=== PATIENT | male | born 1950 ===

== ENCOUNTER 2025-09-13 09:52 | Outpatient (AMB) | payer MEDICARE, MEDICAID, SELFPAY ==
--- NOTE | 2025-09-13 09:59 | A.OFFVIS_ITS ---
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 He is presenting for a follow-up visit for Parkinson's disease. His last visit was approximately 1.5 years ago. His condition is reportedly stable. Cognitively, the patient is alert but experiences some age-related forgetfulness, which is considered unremarkable. There are no reports of hallucinations, and a prior suspicion of such was found to be due to an alarm in the basement. There is confusion regarding his current medication regimen. His primary care physician reportedly reduced a medication from twice or three times daily to once daily, but this was later advised to be increased back to twice daily by the neurology office. He is known to be taking both carbidopa-levodopa 50/100 and 25 mg formulations, but the exact current dosages are unconfirmed. The patient is more active, walks up and down stairs without a walker, and leaves the house for errands. 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 - Denies hallucinations. Physical Exam Neuro Other: Mental Status: Alert and oriented to person, place, and time. Normal attention. Normal spontaneous speech, fluency, and comprehension. Cranial Nerves: CN II: Visual morillo full to confrontation, visual acuity intact. CN III, IV, : Pupils equal, round, reactive to light and accommodation. Extraocular movements are normal. CN V: Facial sensation is normal. CN VII: Facial movements symmetrical. CN VIII: Hearing intact to bedside conversation is normal. CN IX, X: Palate elevates symmetrically. CN XI: Shoulder shrug and head turn symmetrical. CN XII: Tongue midline without atrophy or fasciculations. Motor: Bulk and tone normal in all extremities. No significant muscle weakness in arms and legs. No drift. Reflexes: Deep tendon reflexes 2+ and symmetric. Plantar response down-going bilaterally. Coordination: [id number] and [id number] testing normal. No dysmetria. Gait and Station: No obvious gait abnormality. No ataxia or instability. Extrapyramidal: Full facial expressions and blinking. No rigidity. Movements are appropriate with no tremor or abnormality. Speech: Normal; no dysarthria or tremor. Assessment & Plan Assessment & Plan (1) Parkinson disease: Comment: MRI brain WO at [facility] in January 2024: minimal atrophy and minimal MVD. Code(s): G20.A1 - Parkinson's disease without dyskinesia, without mention of fluctuations Category: Medical Qualifiers: Dyskinesia presence: without dyskinesia Fluctuating manifestations: without fluctuating manifestations Qualified Code(s): G20.A1 - Parkinson's disease without dyskinesia, without mention of fluctuations Plan Impression: a; Parkinson disease b: MCI Rec: a: Carbidopa/levodopa 25/100 one tid b: Carbidopa/levodopa ER 50/200 one tid I discussed with the patient and his caregiver that he appears to be doing well from a Parkinson's standpoint. I explained that due to recent medication changes by his primary doctor and the resulting confusion, I cannot safely send refills without knowing exactly what he is currently taking. I instructed his caregiver to call the office today with the correct medication list. We agreed that he should be seen for follow-up every six months. Coding Level of Care Code Est Pt Level 3 (91401) Diagnoses Parkinson's disease without dyskinesia or fluctuating manifestations G20.A1 Dyskinesia presence: without dyskinesia Fluctuating manifestations: without fluctuating manifestations
--- OUTSIDE RECORDS SUMMARY | 2025-09-13 09:59 | XMS_ITS | Clinical Summary ---
Author Organization [facility] Address [address] [place] [address] Phone Care Team Providers Care Mortgage Loan Originator Name Role Phone Pamela Pete MD Primary Care Provider Allergies No known active allergies Medications Senexon-S 8.6-50 mg per tablet TAKE 1 TABLET BY MOUTH EVERY DAY 90 tablet 1 08/17/20 24 Active Additional Information Patient taking differently:1 tablet oralDaily PRN, constipation, Reported on 04/21/2025 loratadine (CLARITIN) 10 mg tablet Take 1 tablet (10 mg total) by mouth 1 (one) time each day if needed for allergies. Active carbidopa-levodopa (SINEMET) 25-100 mg per tablet TAKE 2 TABLETS BY MOUTH 3 TIMES A DAY 11/01/19 22 Active acetaminophen (TYLENOL) 500 mg tabletIndications: Primary hypertension,Mixed hyperlipidemia,Par kinson's disease, unspecified whether dyskinesia present, unspecified whether manifestations fluctuate (CMS/HCC V24, CMS/HCC V28),Hx of compression fracture of spine,History of mitral valve repair Take 2 tablets (1,000 mg total) by mouth every 8 (eight) hours. as directed for 30 days 90 tablet 2 12/23/19 25 Active Additional Information Patient taking differently:1,000 mg oralEvery 8 hours PRN, as directed for 30 days, Reported on 04/21/2025 carbidopa-levodopa CR (SINEMET CR) 50-200 mg per CR tablet Take 1 tablet by mouth 3 (three) times a day. Do not crush or chew. Active melatonin 10 mg capsule Take 1 capsule (10 mg total) by mouth at bedtime as needed. Active Entresto 49-51 mg per tabletIndications: Cardiomyopathy, unspecified (CMS/HCC V24, CMS/HCC V28) TAKE 1 TABLET BY MOUTH TWICE A DAY 180 tablet 3 01/03/20 25 Active simvastatin (ZOCOR) 20 mg tablet TAKE 1 TABLET BY MOUTH EVERYDAY AT BEDTIME 90 tablet 1 03/06/20 25 Active metoprolol succinate (TOPROL-XL) 100 mg 24 hr tablet TAKE 1 TABLET BY MOUTH EVERY DAY 90 tablet 3 06/02/20 25 Active spironolactone (ALDACTONE) 25 mg tablet TAKE 1 TABLET BY MOUTH 1 TIME EACH DAY. 90 tablet 1 06/02/20 25 Active apixaban (Eliquis) 5 mg tabletIndications: Other persistent atrial fibrillation (CMS/HCC V24, CMS/HCC V28) TAKE 1 TABLET BY MOUTH TWICE A DAY 90 tablet 3 07/24/20 25 Active Active Problems Problem Noted Date Diagnosed Date HTN (hypertension) 08/26/2024 Assessment & Plan (04/21/2025 3:12 PM EDT): Soft and asymptomatic. Continue with Entresto, metoprolol and spironolactone. Hyperlipidemia 08/26/2024 Assessment & Plan (04/21/2025 3:12 PM EDT): Lab Results Component Value Date CHOL 135 12/22/2024 CHOL 134 06/22/2024 Lab Results Component Value Date HDL 50 12/22/2024 HDL 58 06/22/2024 Lab Results Component Value Date LDLCALC 60 12/22/2024 Lab Results Component Value Date TRIG 124 12/22/2024 TRIG 78 06/22/2024 Lab Results Component Value Date CHOLHDL 2.7 12/22/2024 Continue with simvastatin. Major depression 08/26/2024 Overview (08/26/2024): [place]ing a therapist in [place]- Melania Cabral Compression fracture of thor acic vertebra with routine healing 05/27/2023 Cardiomyopathy 04/27/2023 Overview (04/21/2025): December 2009 - normal coronary arteries pre CT surgery October 2023 echocardiogram showing severely reduced LV systolic function LVEF 30% with mild concentric left ventricular hypertrophy, biatrial enlargement, reduced RV global systolic function, no hemodynamically significant valvular disease, mitral valve ring well-seated with trace mitral regurgitation and mean gradient of 2 mmHg; compared to the prior study of March 2023 LV systolic function had improved April 2023 - Regadenoson Nuclear stress test Conclusions: Abnormal perfusion. There is no evidence of ischemia by myocardial perfusion imaging. There is a medium size inferior/inferolateral defect which could represent prior infarct versus tissue attenuation. Gated SPECT imaging shows global hypokinesis with LVEF of 35%. LAD calcifications were noted on CT attenuation images. Assessment & Plan (04/21/2025 3:12 PM EDT): Nonischemic, longstanding cardiomyopathy. Echocardiogram from September 2023 showed severely reduced LV systolic function. He appears compensated on exam. Continue with Entresto, metoprolol and spironolactone. Consider adding SGLT2 inhibitor. Will need to consider ICD without BiV as well as cardiac MRI after next echocardiogram. We reviewed heart failure management including low-sodium diet, symptom surveillance, daily weights and medication compliance. If the patient has weight gain over 3lbs in one day or 5lbs over several days, they are aware to contact our office. With any severe or sustained symptoms, they are aware to contact EMS via 911 and go to the emergency room. Orders: Transthoracic echocardiogram (TTE) complete with PRN contrast, bubble, strain, and 3D order panel; Future perflutren lipid microsphere (DEFINITY) 1.3 mL in sodium chloride 0.9% 8.7 mL injection Compression fracture of third lumbar vertebra Alcoholism 01/01/2023 Mitral valve disease 01/01/2023 Overview (04/21/2025): December 2009 -due to severe mitral valve regurgitation with associated congestive heart failure the patient underwent successful mitral valve radicle reconstruction with the addition of annuloplasty using a size #30 [place] ring, left sided Maze procedure using the atrial cure radiofrequency device Dr. Arteaga at [facility] Assessment & Plan (04/21/2025 3:12 PM EDT): Functioning well with trace mitral regurgitation by last echocardiogram in September 2023. Continue to monitor by echocardiogram as per ACC standards and as clinically indicated - repeat echocardiogram in September 2025. Type 2 diabetes mellitus 01/01/2023 Persistent atrial fibrillation 07/22/2022 Assessment & Plan (04/21/2025 3:12 PM EDT): Longstanding persistent atrial fibrillation. Asymptomatic and rate controlled. CHADSVASc - 4. Continue with apixaban and metoprolol. Orders: ECG 12 lead Benign non-nodular prostatic hyperplasia with lower urinary tract symptoms 04/18/2016 Benign neoplasm of adrenal gland 03/14/2016 Overview (08/26/2024): Left side,1.7cms Recheck ctin 6-12 months Parkinson's disease 06/19/2015 Overview (08/26/2024): Follows with Dr Adler on Sinemet, glantamine 8mg and Rasagiline(Azilect). Pt stopped Azilect and galantamine Encounters Date Type Department Care Team Description 08/04/2025 Telephone Adult Medicine - [address] [phone] Pamela Pete MD from Last 3 Months Immunizations Immunization Administration Dates Next Due Influenza Quadravalent, 0.5m l (Fluzone High-dose) 65yo and older 07/03/2023 Influenza Split 10/08/2012 Influenza trivalent, 0.5mL ( Fluad) 65yo and older 06/01/2024,07/11/2022,07/04/2021,07/18,06/23/2018,06/16/2017,09/03/2016 ,06/14/2015,07/01/2013 Influenza trivalent, 0.5mL ( Fluzone High-dose) 65yo and older 07/27/2024,07/11/2022,07/04/2021,07/18,06/23/2018,06/16/2017,09/03/2016 ,06/14/2015 Influenza trivalent, 0.5mL, preservative free (Fluarix; FluLaval; Fluzone) ages 6mo and older (Afluria) 3 years and older 10/08/2012 Influenza trivalent, with pr eservative (Fluzone; Afluria) 6mo and older 07/01/2013 Pfizer (ages 12 & older) Biv alent, COVID-19 07/15/2022 [employer] Covid-19 Bivalent, Or iginal + Ba.1 (Non-US Trademark [employer] Stuff Bivalent) 07/15/2022 [employer] SARS-CoV-2 COVID-19, mRNA, LNP-S, preservative free 07/15/2022 Pneumococcal conjugate 13 va lent (Prevnar 13, PCV13) 2mo and older 07/26/2015 Pneumococcal polysaccharide 23 valent (Pneumovax 23) 2yo and older 09/20/2013 RSV, bivalent, protein subun it RSVpreF, 0.5mL, Preservative Free (Arexvy) 50yo and older 09/23/2023 Td Tetanus diptheria (Tdvax) 7yo and older 02/09/2014 Zoster Live 06/01/2024 Zoster recombinant (Shingrix ) 19yo and older 10/14/2024,06/01/2024 Surgical History Surgery Date Site/Laterality Comments CARDIAC SURGERY 2009 PROCEDURE: HISTORICAL HEART SURGERY(ASD,VSD,VALVES); COMMENT: done in [facility] - mitral valve repair TONSILLECTOMY PROCEDURE: HISTORICAL TONSILLECTOMY OTHER SURGICAL HISTORY 2010 PROCEDURE: TREAT ATRIAL FIBRILLATION/FLUTTER; COMMENT: MAZE COLONOSCOPY 12/04/14 PROCEDURE: HISTORICAL COLONOSCOPY; COMMENT: hemorrhoids; repeat in 10 yrs Medical History Medical History Date Comments HTN (hypertension) DX:HTN (hyper tension) Hyperlipidemia DX:Hyperlipidemi a S/P mitral valve repair DX:S/P m itral valve repair; COMMENT: follows with Vocational Aide- [place] Major depression DX:Major depres michelle Parkinson's disease ([facility] V24, [facility] V28) 06/19/2015 DX:Parkinson's disease ([facility]) ; COMMENT: Follows with Dr Adler on Sinemet Benign neoplasm of adrenal gland 03/14/2016 DX:Benign neoplasm of adrenal gland; COMMENT: Left side,1.7cms Recheck ctin 6-12 months Benign non-nodular prostatic hyperplasia with lower urinary tract symptoms 04/18/2016 DX:Benign non-nodular prosta tic hyperplasia with lower urinary tract symptoms History of vertebral fracture DX :History of vertebral fracture; COMMENT: L3 Type 2 diabetes mellitus ( S/[facility] V24, [facility] V28) 01/01/2023 DX:Type 2 diabetes mellitus ([facility]) Family History Medical History Relation Name Comments Blindness Aunt Mental illness Brother committed piper ivcide Heart attack Father 5 mi, brain can cer Blindness Mother Diabetes Mother No Known Problems Sister Cataracts Neg Hx Glaucoma Neg Hx Macular degeneration Neg Hx Strabismus Neg Hx Relation Name Status Comments Aunt Brother Father Mother Sister Alive Social History Tobacco Use Types Packs/Day Years Used Date Smoking Tobacco: Former Cigarettes 0.5 Q uit: 09/21/2009 Smokeless Tobacco: Never Tobacco Cessation:Counseling Given: Not Answered Alcohol Use Standard Drinks/Week Comments No 0 (1 standard drink = 0.6 oz pur e alcohol) Sex and Gender Information Value Date Recorded Sex Assigned at Not on file Legal Sex Male 4:54 AM EST Gender Identity Not on file Sexual Orientation Not on file Last Filed Vital Signs Vital Sign Reading Time Taken Comments Blood Pressure 98/72 04/21/2025 1:08 PM EDT Pulse 68 04/21/2025 1:08 PM EDT Temperature 36.3 C (97.4 F) 12/22/2024 8:39 AM EDT Respiratory Rate 16 12/22/2024 8:39 AM EDT Oxygen Saturation 100% 04/21/2025 1:08 PM EDT Inhaled Oxygen Concentration - - Weight 70.8 kg (156 lb 1.6 oz) 04/21/2025 1:08 P M EDT Height 175.3 cm (5' 9 ) 04/21/2025 1:08 PM EDT Body Mass Index 23.05 04/21/2025 1:08 PM EDT Plan of Treatment Upcoming Encounters Date Type Department Care Team (Late st Contact Info) Description 09/26/2025 1:30 PM EST Ancillary Procedure [facility] - [address] [place] [address] 11/20/2025 10:30 AM EST Office Visit General Surgery - [place] [address] [place] [phone] Darren Baxter MD [address] [place] [phone] Health Maintenance Due Date Last Done Comments Diabetes: Annual Foot Exam 1960 Hepatitis A Vaccines (1 of 2 - Risk 2-dose series) 1967 Colorectal Cancer Screening: Stool Based Tests (FOBT/FIT) 08/30/2022 Falls Risk Assessment 08/30/2022 Medicare Annual Wellness Visit 08/30/2022 Social Influencers of Health Screening 08/30/2022 DTaP,Tdap,and Td Vaccines (2 - Td or Tdap) 02/10/2024 02/09/2014 Depression Screening 09/21/2024 Diabetes: Annual Retina Eye Exam 10/29/2024 10/29/2023 Diabetes: Blood Sugar Control Test (HGBA1C) 12/21/2024 06/22/2024, 06/22/2024 Diabetes: Annual Urine Albumin-Creatinine Ratio (uACR) 06/22/2025 06/22/2024 Diabetes: Annual GFR (Glomerular Filtration Rate) 12/22/2025 12/22/2024, 06/22/2024, 06/22/2024, Additional history exists Hypertension/CHF/CAD Annual BMP Blood Test 12/22/2025 12/22/2024, 06/22/2024, 06/22/2024, Additional history exists COVID-19 Vaccine ( season) 2026 08/25/2025, 06/01/2024, 07/03/2023, Additional history exists Cholesterol Screening (Lipid Panel) 12/22/2029 12/22/2024, 06/22/2024, 06/22/2024 Hepatitis C Screening Completed 07/04/2013 Pneumococcal Vaccine: 50+ Years Completed 07/26/2015, 09/20/2013 RSV Immunization Adult Patients Completed 09/23/2023 Zoster Vaccines Completed 10/14/2024, 05/22, 06/01/2024 Influenza Vaccine Completed 08/25/2025, , 06/01/2024, Additional history exists HIB Vaccines Aged Out No longer eligi ble based on patient's age to complete this topic HPV Vaccines Aged Out No longer eligi ble based on patient's age to complete this topic Hepatitis B Vaccines Aged Out No long er eligible based on patient's age to complete this topic IPV Vaccines Aged Out No longer eligi ble based on patient's age to complete this topic MMR Vaccines Aged Out No longer eligi ble based on patient's age to complete this topic Meningococcal ACWY Vaccine Aged Out N o longer eligible based on patient's age to complete this topic Meningococcal B Vaccine Aged Out No l onger eligible based on patient's age to complete this topic RSV Immunization Patients Under 20 months Aged Out No longer eligible based on patient's age to complete this topic Varicella Vaccines Aged Out No longer eligible based on patient's age to complete this topic Procedures Procedure Name Priority Date/Time Associated Diagnosis Comments COMPREHENSIVE METABOLIC PANEL Routine 12/22/2024 9:08 AM EDT Primary hypertension Mixed hyperlipidemia Parkinson's disease, unspecified whether dyskinesia present, unspecified whether manifestations fluctuate (CMS/HCC V24, CMS/HCC V28) Hx of compression fracture of spine History of mitral valve repair LIPID PANEL WITH REFLEX TO DIRECT LDL Routine 12/22/2024 9:08 AM EDT Primary hypertension Mixed hyperlipidemia Parkinson's disease, unspecified whether dyskinesia present, unspecified whether manifestations fluctuate (CMS/HCC V24, CMS/HCC V28) Hx of compression fracture of spine History of mitral valve repair URINE ALBUMIN CREATININE RATIO Routine 06/22/2024 HEMOGLOBIN A1C Routine 06/22/2024 DIABETES EYE EXAM Routine 10/29/2023 HEPATITIS C SCREENING Routine 07/04/2013 from Last 3 Months or Most Recently Relevant to Health Maintenance Results * Lipid panel with reflex to direct LDL (12/22/2024 9:08 AM EDT) Cholesterol 135 0 - 200 mg/dL LAB CHEMISTRY METHOD 12/22/2024 1:47 PM EDT [facility] Triglycerides 124 0 - 150 mg/dL LAB CHEMISTRY METHOD 12/22/2024 1:47 PM EDT [facility] HDL 50 >=40 mg/dL LAB CHEMISTRY METHOD 12/22/2024 1:47 PM EDT [facility] LDL Calculated 60 0 - 100 mg/dL LAB CHEMISTRY METHOD 12/22/2024 1:47 PM EDT [facility] VLDL Cholesterol Jonny 24.8 mg/dL LAB CHEMISTRY METHOD 12/22/2024 1:47 PM EDT [facility] Non HDL Chol. (LDL+VLDL) 85 <145 mg/dL LAB CHEMISTRY METHOD 12/22/2024 1:47 PM EDT [facility] Chol/HDL Ratio 2.7 0.0 - 4.4 LAB CHEMISTRY METHOD 12/22/2024 1:47 PM EDT [facility] Blood Venous blood specimen / Unknown Venipuncture / Unknown 12/22/2024 9:08 AM EDT 12/22/2024 9:08 AM EDT us Pamela Pete MD LAB BLOOD ORDERABLES F inal Result [facility] [address] [place] [address], [place] [phone] * (ABNORMAL) Comprehensive metabolic panel (12/22/2024 9:08 AM EDT) Sodium 141 133 - 145 mmol/L LAB CHEMISTRY METHOD 12/22/2024 1:47 PM EDT [facility] Potassium 4.4 3.5 - 5.5 mmol/L LAB CHEMISTRY METHOD 12/22/2024 1:47 PM [facility] Chloride 107 96 - 110 mmol/L LAB CHEMISTRY METHOD 12/22/2024 1:47 PM [facility] CO2 28 21 - 32 mmol/L LAB CHEMISTRY METHOD 12/22/2024 1:47 PM [facility] Anion Gap 6 3 - 11 LAB CHEMISTRY METHOD 12/22/2024 1:47 PM [facility] Glucose 90 70 - 100 mg/dL LAB CHEMISTRY METHOD 12/22/2024 1:47 PM [facility] BUN 18 5 - 25 mg/dL LAB CHEMISTRY METHOD 12/22/2024 1:47 PM [facility] Creatinine 0.91 0.70 - 1.30 mg/dL LAB CHEMISTRY METHOD 12/22/2024 1:47 PM [facility] eGFR 87 >=60 mL/min/1. 73m2 LAB CHEMISTRY METHOD 12/22/2024 1:47 PM [facility] Comment:Calculation based on the Chronic Kidney Disease Epidemiology Collaboration (CKD-EPI) equation refit without adjustment for race. BUN/Creatinine Ratio 19.8 LAB CHEMISTRY METHOD 12/22/2024 1:47 PM [facility] Calcium 9.7 8.5 - 10.5 mg/dL LAB CHEMISTRY METHOD 12/22/2024 1:47 PM [facility] AST (SGOT) 14 10 - 42 unit/L LAB CHEMISTRY METHOD 12/22/2024 1:47 PM [facility] ALT (SGPT) 7(L) 10 - 60 unit/L LAB CHEMISTRY METHOD 12/22/2024 1:47 PM [facility] Alkaline Phosphatase 55 42 - 121 unit/L LAB CHEMISTRY METHOD 12/22/2024 1:47 PM [facility] Total Protein 7.1 6.0 - 8.0 g/dL LAB CHEMISTRY METHOD 12/22/2024 1:47 PM EDT [facility] Albumin 4.1 3.2 - 5.0 g/dL LAB CHEMISTRY METHOD 12/22/2024 1:47 PM EDT [facility] Total Bilirubin 0.8 0.0 - 1.4 mg/dL LAB CHEMISTRY METHOD 12/22/2024 1:47 PM EDT [facility] Blood Venous blood specimen / Unknown Venipuncture / Unknown 12/22/2024 9:08 AM EDT 12/22/2024 9:08 AM EDT Result [facility] Pamela Pete MD LAB BLOOD ORDERABLES F inal Result [facility] [address] [place] [address], * Urine Albumin Creatinine Ratio (06/22/2024) [facility] Urine Albumin Creatinine Ratio ABSTRACTED Result [facility] Historical Provider HEALTH MAINTENANCE Final Result * Hemoglobin A1c (06/22/2024) [facility] Hemoglobin A1C 5.6 <=6.5 % Blood Venous blood specimen / Unknown Result [facility] Gregg Morales MD LAB BLOOD ORDERABLES Luz Marina l Result * Diabetes Eye Exam (10/29/2023) [facility] Diabetes: Annual Retina Eye Exam ABSTRACTED Result [facility] Historical Andrew [employer]ANN HEALTH MAINTENANCE Final Result * Hepatitis C Screening (07/04/2013) [facility] Hepatitis C Screening ABSTRACTED Result [facility] Historical Andrwe [employer] HEALTH MAINTENANCE Final Result from Last 3 Months or Most Recently Relevant to Health Maintenance Insurance [employer] Care Teams Mortgage Loan Originator Relationship Specialty Start Date End Date Pamela Pete MD [address] [place] [phone] PCP - General Internal Medicine 02/13/22
== END 2025-09-13 10:12 | disposition home or self-care (01) ==
LOC: HO.HSM 09:53
PROVIDERS: PCP Internal Medicine; Visit Provider Psychiatry & Neurology Neurology
DX: G20.A1 Parkinson's disease without dyskinesia, without mention of fluctuations (principal)
CPT/HCPCS: 99213

== ENCOUNTER → 2025-09-13 09:52 | Outpatient (BNVA) | payer OTHER, SELFPAY | PROVIDERS: PCP Internal Medicine; Visit Provider Psychiatry & Neurology Neurology | DX: G20.A1 Parkinson's disease without dyskinesia, without mention of fluctuations (principal); Z79.899 Other long term (current) drug therapy | CPT/HCPCS: 99212 ==